=== PATIENT | female | born 1990 | race American Indian/Alaskan Native ===

== ENCOUNTER 2017-01-19 15:10 | Emergency (ER) | payer MEDICAID ==
--- NOTE | 2017-01-19 17:43 | Emergency Department Report ---
<BARRETT NICOLAS M - Last Filed: 01/19/17 19:03> - General Chief complaint: Skin/Abscess/Foreign Body Stated complaint: SWALLOWED PIERCING Time Seen by Provider: 01/19/17 17:19 - Related Data Previous Rx's Medication Instructions Recorded Last Taken Type Clindamycin [Clindamycin CAP] 300 mg PO Q8H #21 cap 01/19/17 Unknown Rx Allergies Allergy/AdvReac Type Severity Reaction Status Date / Time No Known Allergies Allergy Unverified 03/05/14 18:57 Abscess Boil HPI - HPI Chief Complaint: Skin/Abscess/Foreign Body Stated Complaint: SWALLOWED PIERCING Time Seen by Provider: 01/19/17 17:19 Home Medications: Previous Rx's Medication Instructions Recorded Last Taken Type Clindamycin [Clindamycin CAP] 300 mg PO Q8H #21 cap 01/19/17 Unknown Rx Allergies/Adverse Reactions: Allergies Allergy/AdvReac Type Severity Reaction Status Date / Time No Known Allergies Allergy Unverified 03/05/14 18:57 ED Review of Systems ROS: Stated complaint: SWALLOWED PIERCING Other details as noted in HPI ED Past Medical Hx - Medications Home Medications: Home Medications Medication Instructions Recorded Confirmed Last Taken Type Clindamycin [Clindamycin CAP] 300 mg PO Q8H #21 cap 01/19/17 Unknown Rx ED Course Vital Signs 01/19/17 15:14 Temperature 98.7 F Pulse Rate 88 Respiratory 20 Rate Blood Pressure 132/68 O2 Sat by Pulse 100 Oximetry - Procedure Description Procedures done: Verbal consent give for removal of nipple ring. spoke with pt about possible complications. PT's skin cleansed with betadine. 0.25ccs of 1% lidocaine injected to site of fb. 11 blade used to open the lateral R nipple piercing site. barbell was able to be backed out. ball was removed and the barbell was removed. At this time, pt requested the L nipple ring also be removed. I was able to unscrew the ball from the L nipple ring and remove that piercing as well. no immidiate complications. Critical care attestation.: If time is entered above; I have spent that time in minutes in the direct care of this critically ill patient, excluding procedure time. ED Disposition Clinical Impression: Foreign body (FB) in soft tissue Disposition: DISCHARGED TO HOME OR SELFCARE Condition: Stable Additional Instructions: Return to the ED if any signs of infection - drainage, redness, fevers or concerns Prescriptions: Clindamycin [Clindamycin CAP] 300 mg PO Q8H #21 cap Referrals: PRIMARY CARE, [Primary Care Provider] - 3-5 Days <CHLOÉ JULIO - Last Filed: 01/19/17 19:17> - General Source: patient Mode of arrival: Ambulatory Limitations: No Limitations - History of Present Illness Initial comments: Relates that her right nipple piercing has been engulfed by rest tissue over the past several days. Patient denies any fever, chills, nausea vomiting or recent trauma. MD complaint: foreign body -: Gradual Abscess Boil HPI - HPI Duration: 5 Days History: Yes Pain, Yes Foreign Body, No Fever, No Purulent Drainage, No Numbness , No Previous History, No Insect Bite ED Review of Systems Constitutional: denies: chills, fever Eyes: denies: eye pain, eye discharge, vision change ENT: denies: ear pain, throat pain Respiratory: denies: cough, shortness of breath, wheezing Cardiovascular: denies: chest pain, palpitations Endocrine: no symptoms reported Gastrointestinal: denies: abdominal pain, nausea, diarrhea Genitourinary: denies: urgency, dysuria, discharge Musculoskeletal: denies: back pain, joint swelling, arthralgia Skin: denies: rash, lesions Neurological: denies: headache, weakness, paresthesias Psychiatric: denies: anxiety, depression Hematological/Lymphatic: denies: easy bleeding, easy bruising ED Past Medical Hx - Past Medical History Hx Asthma: Yes Additional medical history: heart murmur - Social History Smoking Status: Current Every Day Smoker Substance Use Type: None ED Physical Exam - General Limitations: No Limitations General appearance: alert, in no apparent distress - Head Head exam: Present: atraumatic, normocephalic - Eye Eye exam: Present: normal appearance - ENT ENT exam: Present: mucous membranes moist - Neck Neck exam: Present: normal inspection - Respiratory Respiratory exam: Present: normal lung sounds bilaterally. Absent: respiratory distress - Cardiovascular Cardiovascular Exam: Present: regular rate, normal rhythm. Absent: systolic murmur, diastolic murmur, rubs, gallop - GI/Abdominal GI/Abdominal exam: Present: soft, normal bowel sounds - Extremities Exam Extremities exam: Present: normal inspection - Back Exam Back exam: Present: normal inspection - Neurological Exam Neurological exam: Present: alert, oriented X3 - Psychiatric Psychiatric exam: Present: normal affect, normal mood - Skin Skin exam: Present: warm, dry, intact, normal color, other (post packing of left nipple appears to be inside of the area over. No cellulitis, lymphangitis , lymphadenopathy, or discharge noted.). Absent: rash ED Disposition Is pt being admited?: No
[2017-01-19] MEDS ORDERED: NORCO 5/325 PO ONE (17:45)
[2017-01-19] MEDS ORDERED: XYLOCAINE 1% MPF 5 mL INFILTRATI ONE (18:20)
[2017-01-19] MEDS ORDERED: TORADOL IM ONE (18:20)
[2017-01-19] MEDS ORDERED: BOOSTRIX IM ONE (19:10)
[2017-01-19 20:18] VITALS: BP 120/67
--- NOTE | 2017-01-20 08:27 | XRay Report ---
ROUTINE CHEST, TWO VIEWS: HISTORY: Chest pain, foreign body in areola. The trachea, heart, mediastinal contour, lung angel and bony thorax are unremarkable. IMPRESSION: Unremarkable chest x-ray. I am not convinced the areola are included in this exam.
== END 2017-01-19 20:17 | disposition home or self-care (01) ==
LOC: ED 15:10
DX: S21.041A Puncture wound with foreign body of right breast, initial encounter (principal); J45.909 Unspecified asthma, uncomplicated; F17.200 Nicotine dependence, unspecified, uncomplicated; Y93.89 Activity, other specified; Y99.9 Unspecified external cause status; Y92.89 Other specified places as the place of occurrence of the external cause
CPT/HCPCS: 10060; 71020; 90471; 90715; 96372; 99283; J1885

== ENCOUNTER 2021-02-15 19:50 | Emergency (ER) | payer SELFPAY ==
[2021-02-15 20:35] VITALS: BP 131/75
[2021-02-15] MEDS ORDERED: IPRATROPIUM 0.02% NEBU 2.5 ML IH ONE (21:28)
[2021-02-15] MEDS ORDERED: methylPREDNISolone Sod Succinate 125 MG/2 ML INJ IV ONE (21:28)
[2021-02-15] MEDS ORDERED: ALBUTEROL 2.5 MG/3 ML NEBU IH ONE (21:28)
--- NOTE | 2021-02-15 22:11 | XRay Report ---
CHEST 1 VIEW 02/15/2021 9:50 PM INDICATION / CLINICAL INFORMATION: Dyspnea and asthma. COMPARISON: 01/19/17. FINDINGS: SUPPORT DEVICES: None. HEART / MEDIASTINUM: The heart size and pulmonary vasculature are normal. LUNGS / PLEURA: No significant pulmonary or pleural abnormality. No pneumothorax. ADDITIONAL FINDINGS: No significant additional findings. IMPRESSION: No acute abnormality or significant change. Signer Name: Nikolas Mata MD Signed: 02/15/2021 10:06 PM Workstation Name: [id number]
--- NOTE | 2021-02-15 23:49 | Emergency Department Report ---
ED Shortness of Breath HPI - General Chief Complaint: Adult Asthma Stated Complaint: ASTHMA ATTACK Source: patient Mode of arrival: Ambulatory Limitations: No Limitations - History of Present Illness Initial Comments: Patient is a 30-year-old -Mosoth[place] female with a history of asthma and who does not have any bronchodilator medications at home presents to the ED with acute onset persistent shortness of breath, wheezing, chest tightness and dry cough for the last 6 hours. Patient states that her symptoms got worse in the last 2 hours and she had to come to the ED via EMS. Patient states that she received 1 nebulizer treatment with Solu-Medrol by the EMS crew in route to the ED. Patient states that she is still having shortness of breath and that although she is feeling better with the treatment she received in the ambulance, she still feels that her chest is tight with persistent cough. Patient also states that her current symptoms are typical of her chronic intermittent asthma exacerbations although she admits that she has not had any attack in many months. Patient states that she does not have any bronchodilator medications at home. Patient denies dizziness, syncope, fever, chills, sore throat, abdominal pain, chest pain, change in vision, lightheadedness, diarrhea, nausea and vomiting or headache. MD Complaint: shortness of breath, cough, "asthma attack" -: Sudden, hour(s) (6) Severity: severe Pain Scale: 7 Quality: aching, other (chest tightness) Consistency: constant Improves With: bronchodilators Worsens With: coughing Known History Of: asthma Context: allergen exposure Associated Symptoms: denies other symptoms, chest pain (chest tightness), cough Treatments Prior to Arrival: bronchodilator (and solumedrol via EMS) - Related Data Home Oxygen Therapy: No Previous Rx's Medication Instructions Recorded Last Taken Type Clindamycin [Clindamycin CAP] 300 mg PO Q8H #21 cap 01/19/17 Unknown Rx Albuterol Sulfate [Proventil Hfa] 1 - 2 puff IH Q4H PRN #1 hfa.aer.ad 02/15/21 Unknown Rx Benzonatate [Tessalon Perles] 100 mg PO Q8HR #30 capsule 02/15/21 Unknown Rx Cetirizine HCl [Zyrtec 10mg tab] 10 mg PO DAILY #30 tablet 02/15/21 Unknown Rx methylPREDNISolone [Medrol 4MG 4 mg PO DAILY #21 tab.ds.pk 02/15/21 Unknown Rx DOSEPAK (21 tabs)] Allergies Allergy/AdvReac Type Severity Reaction Status Date / Time No Known Allergies Allergy Unverified 03/05/14 18:57 ED Review of Systems ROS: Stated complaint: ASTHMA ATTACK Other details as noted in HPI Constitutional: denies: chills, fever Eyes: denies: eye pain, eye discharge, vision change ENT: congestion. denies: ear pain, throat pain Respiratory: cough, shortness of breath, wheezing Cardiovascular: denies: chest pain, palpitations Endocrine: no symptoms reported Gastrointestinal: denies: abdominal pain, nausea, diarrhea Genitourinary: denies: urgency, dysuria, discharge Musculoskeletal: denies: back pain, joint swelling, arthralgia Skin: denies: rash, lesions Neurological: denies: headache, weakness, paresthesias Psychiatric: denies: anxiety, depression Hematological/Lymphatic: denies: easy bleeding, easy bruising ED Past Medical Hx - Past Medical History Previous Medical History?: Yes Hx Asthma: Yes Additional medical history: heart murmur - Surgical History Past Surgical History?: Yes - Social History Smoking Status: Never Smoker Substance Use Type: None - Medications Home Medications: Home Medications Medication Instructions Recorded Confirmed Last Taken Type Clindamycin [Clindamycin CAP] 300 mg PO Q8H #21 cap 01/19/17 Unknown Rx Albuterol Sulfate [Proventil Hfa] 1 - 2 puff IH Q4H PRN #1 hfa.aer.ad 02/15/21 Unknown Rx Benzonatate [Tessalon Perles] 100 mg PO Q8HR #30 capsule 02/15/21 Unknown Rx Cetirizine HCl [Zyrtec 10mg tab] 10 mg PO DAILY #30 tablet 02/15/21 Unknown Rx methylPREDNISolone [Medrol 4MG 4 mg PO DAILY #21 tab.ds.pk 02/15/21 Unknown Rx DOSEPAK (21 tabs)] ED Physical Exam - General Limitations: No Limitations General appearance: alert, in no apparent distress - Head Head exam: Present: atraumatic, normocephalic, normal inspection - Eye Eye exam: Present: normal appearance, PERRL, EOMI Pupils: Present: normal accommodation - ENT ENT exam: Present: normal orophraynx, mucous membranes moist, TM's normal bilaterally, normal external ear exam, other (Mild grossly congested nasal passages) - Neck Neck exam: Present: normal inspection, full ROM - Respiratory Respiratory exam: Present: wheezes (Mildly diffuse coarse wheezes throughout). Absent: respiratory distress, rales, rhonchi, chest wall tenderness, accessory muscle use, decreased breath sounds, prolonged expiratory - Cardiovascular Cardiovascular Exam: Present: normal rhythm, tachycardia, normal heart sounds. Absent: systolic murmur, diastolic murmur, rubs, gallop - GI/Abdominal GI/Abdominal exam: Present: soft, normal bowel sounds. Absent: distended, tenderness, hyperactive bowel sounds, hypoactive bowel sounds, organomegaly - Extremities Exam Extremities exam: Present: normal inspection, full ROM, normal capillary refill - Back Exam Back exam: Present: normal inspection, full ROM. Absent: tenderness, CVA tenderness (R), muscle spasm, paraspinal tenderness, vertebral tenderness - Neurological Exam Neurological exam: Present: alert, oriented X3, CN II-XII intact, normal gait, reflexes normal - Psychiatric Psychiatric exam: Present: normal affect, normal mood - Skin Skin exam: Present: warm, dry, intact, normal color. Absent: rash ED Course Vital Signs 02/15/21 20:33 Temperature 98.1 F Pulse Rate 118 H Respiratory 17 Rate Blood Pressure 131/75 O2 Sat by Pulse 93 Oximetry ED Medical Decision Making - Radiology Data Radiology results: report reviewed, image reviewed [facility] [address] [place] [address] XRay Report Signed Patient: MARCIAL MENEZES MR#: [id number] : 1990 Acct:[id number] Age/Sex: 30 / F ADM Date: 02/15/21 Loc: ED Attending Dr: Ordering Physician: JENISE AGUAYO Date of Service: 02/15/21 Procedure(s): XR chest 1V ap Accession Number(s): [id number] cc: JENISE AGUAYO Fluoro Time In Minutes: CHEST 1 VIEW 02/15/2021 9:50 PM INDICATION / CLINICAL INFORMATION: Dyspnea and asthma. COMPARISON: 01/19/17. FINDINGS: SUPPORT DEVICES: None. HEART / MEDIASTINUM: The heart size and pulmonary vasculature are normal. LUNGS / PLEURA: No significant pulmonary or pleural abnormality. No pneumothorax. ADDITIONAL FINDINGS: No significant additional findings. IMPRESSION: No acute abnormality or significant change. Signer Name: Nikolas Mata MD Signed: 02/15/2021 10:06 PM Workstation Name: [id number] Transcribed By: RT Dictated By: Nikolas Mata MD Electronically Authenticated By: Nikolas Mata MD Signed Date/Time: 02/15/212205 DD/ 04 TD/TT: - Medical Decision Making This is a 30-year-old -[place]osoth[place] female with a history of asthma and who does not have any bronchodilator medications at home presents to the ED with acute onset persistent shortness of breath, wheezing, chest tightness and dry cough for the last 6 hours. Patient states that her symptoms got worse in the last 2 hours and she had to come to the ED via EMS. Patient states that she received 1 nebulizer treatment with Solu-Medrol by the EMS crew in route to the ED. Patient states that she is still having shortness of breath and that although she is feeling better with the treatment she received in the ambulance, she still feels that her chest is tight with persistent cough. Patient also states that her current symptoms are typical of her chronic intermittent asthma exacerbations although she admits that she has not had any attack in many months. Patient states that she does not have any bronchodilator medications at home. In the ED, patient is alert and oriented x3 and is not in any distress. Patient was treated in the ED with albuterol 5 mg and ipratropium 1 mg nebulizers. Patient had received Solu-Medrol 125 mg IV by EMS crew prior to arrival in the ED. Chest x-ray showed no acute cardiopulmonary abnormalities or pneumonitis. On reevaluation, patient's wheezing resolved with medications. Patient's oxygen saturation is 97% in room air though still tachycardic at 105 bpm possibly from bronchodilator treatment in the ED. Patient personally expressed that she was feeling much better. Patient was therefore discharged home with a prescription of bronchodilator inhaler, steroid Dosepak and cough medication, and was advised to follow-up with her primary care physician in 3 to 5 days for reevaluation. Patient was advised return to the ED immediately if symptoms get worse. - Differential Diagnosis Asthma; bronchitis; pneumonia; URI; allergic rhinitis Critical care attestation.: If time is entered above; I have spent that time in minutes in the direct care of this critically ill patient, excluding procedure time. ED Disposition Clinical Impression: Acute bronchitis with asthma with acute exacerbation, Shortness of breath Disposition: TO HOME OR SELFCARE Is pt being admited?: No Does the pt Need Aspirin: No Condition: Stable Instructions: Shortness of Breath, Adult, [id number], Acute Bronchitis, A dult, [id number], Asthma, Adult, [id number], Acute Bronchitis (ED) Additional Instructions: Chest x-ray showed no acute cardiopulmonary abnormalities or pneumonitis. Your symptoms are due to asthma versus bronchitis exacerbation triggered by possibly allergens in the air. Therefore take medications as advised, drink plenty of fluids and follow-up with your primary care physician in 3 to 5 days for reevaluation. Return to the ED immediately if symptoms get worse. Prescriptions: methylPREDNISolone [Medrol 4MG DOSEPAK (21 tabs)] 4 mg PO DAILY #21 tab.ds.pk Albuterol Sulfate [Proventil Hfa] 1 - 2 puff IH Q4H PRN #1 hfa.aer.ad PRN Reason: Wheezing Benzonatate [Tessalon Perles] 100 mg PO Q8HR #30 capsule Cetirizine HCl [Zyrtec 10mg tab] 10 mg PO DAILY #30 tablet Referrals: [facility] [Provider Group] - 3-5 Days Time of Disposition: 23:53 Print Language: JAPANESE
== END 2021-02-16 00:10 | disposition home or self-care (01) ==
LOC: ED 19:50
DX: J45.901 Unspecified asthma with (acute) exacerbation (principal); R06.02 Shortness of breath; Z79.899 Other long term (current) drug therapy
CPT/HCPCS: 71045; 94640